=== PATIENT | female | born 1955 | race Caucasian/White ===

== ENCOUNTER → 2016-11-30 | Day surgery (SDC) | payer OTHER, MEDICARE ==
[~2016-11-30] VITALS: Ht 154.9 cm; Wt 93.0 kg
[~2016-11-30] MED LIST: ALPRAZOLAM1 M2 PO; CYCLOBENZAPRINE10 M1 PO; DUONEB 3 MG/3 ML3 ML INH/SOL; LEXAPRO20 M1 PO; PROVENTIL HFA6.7 GM INH; ROBITUSSIN W/CO10 ML PO; SUPER B-50 COM1 EAC1 PO; SYMBICORT 80-10.2 GM INH; VIIBRYD10 M1 PO; VITAMIN D31000 UNI1 PO
--- NOTE | 2016-11-30 10:01 | Operative Report ---
Operative/Inv Procedure Report Surgery Date: 11/30/16 Name of Procedure: Umbilical hernia repair Pre-Operative Diagnosis: Incarcerated umbilical hernia Post-Operative Diagnosis: Same Estimated Blood Loss: scant Surgeon/Automotive Instructor: DANITA DUTTON,GLENN Calvo/SOOC Fishman Anesthesia: laryngeal mask airway Implants: None Operative/Procedure Note Note: After informed consent she was brought to the operating room and laid supine. Anesthesia was obtained and her abdomen was prepped and draped. The skin around the umbilicus was infiltrated with a cocktail local anesthesia. A curvilinear incision was made sharply and subcutaneous tissues tissues dissected bluntly. The umbilical stalk was circumferentially dissected and then transected with cautery. The defect was exposed. There was incarcerated preperitoneal fat neck of the hernia was delineated and incised with cautery. Contents were then reduced. The fascial defect was 2 cm. Is closed primarily with interrupted 0 Maxon sutures. The umbilical stock was re-created 3-0 Vicryl and the wound closed in layers of Vicryl sutures. Sterile dressing was applied. Sponge and needle counts are correct Findings: 2cm defect. no mesh CC: EMIR EDWARDS APRN
== END ==
LOC: STS 06:56
DX: K42.0 Umbilical hernia with obstruction, without gangrene (principal); J44.9 Chronic obstructive pulmonary disease, unspecified; F17.210 Nicotine dependence, cigarettes, uncomplicated; E66.9 Obesity, unspecified
CPT/HCPCS: J0131; J0690; J1885; J2250; J2405